=== PATIENT | female | born 1980 | race African-American/Black ===

== ENCOUNTER 2018-11-07 22:06 | Emergency (ER) | payer BC, OTHER ==
[2018-11-07 22:30] VITALS: BP 169/90; PULSE 81; TEMP 98.3; BMI 49.8
[2018-11-08] MEDS ORDERED: ACETAMINOPHEN 325 MG TABLET (FP) PO ONE (00:49)
[2018-11-08] MEDS ORDERED: ACETAMINOPHEN 325 MG TABLET (FP) ONE (00:52)
--- NOTE | 2018-11-08 00:52 | PDOC ---
History of Present Illness - General Chief Complaint: Sore Throat Stated Complaint: COLD SYMPTOMS Time Seen by Provider: 11/08/18 00:44 History Source: Patient Exam Limitations: No Limitations Past History - Past Medical History Allergies/Adverse Reactions: Allergies Allergy/AdvReac Type Severity Reaction Status Date / Time No Known Allergies Allergy Verified 07/09/12 09:16 Home Medications: Ambulatory Orders NK [No Known Home Medication] 11/08/18 - Suicide/Smoking/Psychosocial Hx Smoking Status: No Smoking History: Never smoked Number of Cigarettes Smoked Daily: 0 *Physical Exam - Vital Signs Last Vital Signs Temp Pulse Resp BP Pulse Ox 98.3 F 81 19 169/90 99 11/07/18 22:28 11/07/18 22:28 11/07/18 22:28 11/07/18 22:28 11/07/18 22:28 *DC/Admit/Observation/Transfer Diagnosis at time of Disposition: Sore throat - Discharge Dispostion Disposition: HOME Decision to Admit order: No - Referrals Referrals: Sary Rivera MD [Primary Care Provider] - [facility] [place] [facility] [place] [Provider Group] - Patient Instructions Printed Discharge Instructions: DI for Strep Throat Additional Instructions: you were seen for your sore throat. your strep test was negative. please use motrin and tylenol for pain management and as directed on the label. please return to the emergency department if you have worsening pain or new concerning symptoms such as neck stiffness, fever, confusion, shortness of breath, and instability when walking. please follow up with your PMD within 1 week for follow up care and management. - Post Discharge Activity Forms/Work/School Notes: Back to Work
--- NOTE | 2018-11-08 01:19 | PDOC ---
Documentation entered by Kathy Peterson SCRIBE, acting as scribe for Chacorta Russ MD. Chacorta Russ MD: This documentation has been prepared by the Nicholas pepe Nirvannie, SCRIBE, under my direction and personally reviewed by me in its entirety. I confirm that the documentation accurately reflects all work, treatment, procedures, and medical decision making performed by me. Attending Attestation - Resident Resident Name: Jayesh Lawrence - ED Attending Attestation I have performed the following: I have examined & evaluated the patient, The case was reviewed & discussed with the resident, I agree w/resident's findings & plan - HPI HPI: 11/08/18 00:53 The patient is a 38 year old female, with a significant past medical history of DM, HTN, prolactinoma, who presents to the emergency department with, sore throat. She denies any worsening or alleviating factors. Allergies: NKDA Primary Care Physician: Dr. Sary Rivera - Physicial Exam PE: 11/08/18 01:18 Patient is awake and alert, well-appearing, afebrile Normocephalic and atraumatic PERRLA, EOMI, no photophobia TMs are normal bilaterally Oropharynx is clear No cervical lymphadenopathy appreciated; no meningismus Lungs are clear RRR No petechial rash Abdomen is nontender, nondistended Nonfocal neurologically - Medical Decision Making 11/08/18 01:19 38-year-old female with history of diabetes presents with signs and symptoms consistent with upper respiratory infection. I do not suspect pneumonia or meningitis at this time. Will obtain rapid strep test and if negative, will discharge with symptomatic relief with PMD follow-up.
== END 2018-11-08 02:44 | disposition home or self-care (01) ==
LOC: JER 22:06
DX: J02.9 Acute pharyngitis, unspecified (principal); E11.9 Type 2 diabetes mellitus without complications; I10 Essential (primary) hypertension; D35.2 Benign neoplasm of pituitary gland
CPT/HCPCS: 87070; 87880; 99281-25

== ENCOUNTER 2020-01-11 18:31 | Emergency (ER) | payer OTHER ==
[2020-01-11 18:41] VITALS: TEMP 98; BMI 47.2
[2020-01-11] MEDS ORDERED: SODIUM CHLORIDE 1,000 ML IV STA (18:42)
--- NOTE | 2020-01-11 18:42 | PDOC ---
Rapid Medical Evaluation Time Seen by Provider: 01/11/20 18:35 Medical Evaluation: Allergies Allergy/AdvReac Type Severity Reaction Status Date / Time No Known Allergies Allergy Verified 07/09/12 09:16 01/11/20 18:36 CC: sob x 1 day, lightheaded and feels sinus pressure and sore throat x months, covid-(last week), endoscopy last week and has mild upper abd pain, niddm (no meds taken today) Plan: labs, bgm, ekg, ivf, cxr, d dimer Exam: vss, appears dyspneic Discharge Disposition - Diagnosis Shortness of breath - Referrals - Patient Instructions - Post Discharge Activity
[2020-01-11] MEDS ORDERED: LABETALOL HCL 100 MG TABLET (FP) PO ONE (19:58)
[2020-01-11] MEDS ORDERED: LABETALOL HCL 100 MG TABLET (FP) ONE (20:26)
[2020-01-11 20:29] LABS: BASO % 1.5 % (0-2.0); EOS % 5.4 % (0-4.5); HEMATOCRIT 35.2 % (32.4-45.2); HEMOGLOBIN 11.7 GM/dL (10.7-15.3); LYMPH % 43.8 % (8-40); MCH 28.1 pg (25.7-33.7); MCHC 33.3 g/dl (32.0-36.0); MEAN CELL VOLUME 84.6 fl (80-96); MEAN PLT VOLUME 8.4 fl (7.5-11.1); MONO % 5.8 % (3.8-10.2); NEUT % 43.5 % (42.8-82.8); PLATELET COUNT 345 K/MM3 (134-434); RBC 4.17 M/mm3 (3.60-5.2); RDW 14.7 % (11.6-15.6); WHITE BLOOD COUNT 5.8 K/mm3 (4.0-10.0)
--- NOTE | 2020-01-11 20:39 | PDOC ---
*Physical Exam - Vital Signs Last Vital Signs Temp Pulse Resp BP Pulse Ox 98.0 F 79 20 179/96 H 100 01/11/20 18:36 01/11/20 18:36 01/11/20 18:36 01/11/20 18:36 01/11/20 18:36 ED Treatment Course - LABORATORY CBC & Chemistry Diagram: 01/11/20 20:15 01/11/20 20:15 - ADDITIONAL ORDERS Additional order review: 01/11/20 20:15 RBC 4.17 MCV 84.6 MCHC 33.3 RDW 14.7 MPV 8.4 Neutrophils % 43.5 Lymphocytes % 43.8 H Monocytes % 5.8 Eosinophils % 5.4 H Basophils % 1.5 - Medications Given in the ED: ED Medications Discontinued Medications Generic Name Dose Route Start Last Admin Trade Name Freq PRN Reason Stop Dose Admin Sodium Chloride 1,000 mls @ 1,000 mls/hr 01/11/20 18:42 01/11/20 20:37 Normal Saline - IV 01/11/20 19:41 1,000 mls/hr ASDIR STA Administration Labetalol HCl 300 mg 01/11/20 19:58 01/11/20 20:37 Normodyne - PO 01/11/20 19:59 300 mg ONCE ONE Administration Medical Decision Making - Medical Decision Making 01/11/20 20:39 Patient seen by the advanced practice provider under my supervision. Ancillary testing reviewed as necessary. I agree with plan as outlined by the advanced practice provider. Discharge - Discharge Information Problems reviewed: Yes Clinical Impression/Diagnosis: Shortness of breath, Chest tightness, Chest pain at rest Condition: Stable Disposition: HOME - Follow up/Referral Referrals: Colby Torrez MD [Staff Physician] - Call tomorrow Enrique Benson MD [Staff Physician] - Call tomorrow Sary Rivera MD [Primary Care Provider] - - Patient Discharge Instructions Patient Printed Discharge Instructions: DI for Atypical Chest Pain Additional Instructions: Please follow-up with a emergency medicine as soon as possible. Return to the emergency room for any worsening symptoms - Post Discharge Activity Work/Back to School Note: Back to Work
[2020-01-11 20:57] LABS: EPI CELLS 16 /uL (0-25.1); HYALINE CASTS 11 /uL (0-3.1); PH,URINE 5.5 (5.0-8.0); URINE APPEARANCE CLEAR; URINE BACTERIA 395 /uL (0-1359); URINE BILIRUBIN NEGATIVE (NEGATIVE); URINE COLOR YELLOW; URINE GLUCOSE (UA) NEGATIVE (NEGATIVE); URINE KETONE NEGATIVE (NEGATIVE); URINE LEUK ESTERASE NEGATIVE (NEGATIVE); URINE NITRITE NEGATIVE (NEGATIVE); URINE PROTEIN 1+ (NEGATIVE); URINE UROBILINOGEN 0.2 mg/dL (0.2-1.0); URINE WBC 4 /uL (0-25.8)
[2020-01-11 20:58] LABS: HCG,QUALITATIVE URINE Negative
[2020-01-11 21:41] LABS: ALBUMIN 3.9 g/dl (3.4-5.0); ALK PHOS 55 U/L (45-117); ANION GAP 9 MMOL/L (8-16); BILIRUBIN,TOTAL 0.4 mg/dL (0.2-1); BLOOD UREA NITROGEN 6.8 mg/dL (7-18); CALCIUM 9.1 mg/dL (8.5-10.1); CHLORIDE 109 mmol/L (98-107); CO2 25 mmol/L (21-32); CREATININE 0.9 mg/dL (0.55-1.3); GLUCOSE,RANDOM 82 mg/dL (74-106); SGOT/AST 39 U/L (15-37); SGPT/ALT 77 U/L (13-61); SODIUM 143 mmol/L (136-145); TOT PROT 7.5 g/dl (6.4-8.2)
[2020-01-11 21:55] VITALS: BP 134/75; PULSE 71
--- NOTE | 2020-01-11 22:07 | PDOC ---
History of Present Illness - General Chief Complaint: Shortness of Breath Stated Complaint: SOB/LIGHT HEADED Time Seen by Provider: 01/11/20 18:35 - History of Present Illness Initial Comments: 01/11/20 22:04 39-year-old female with a past medical history of diabetes and hypertension presents for evaluation of shortness of breath and malaise which started today. She has no chest pain. She has not taken her daily blood pressure medication as of now Past History - Medical History Allergies/Adverse Reactions: Allergies Allergy/AdvReac Type Severity Reaction Status Date / Time No Known Allergies Allergy Verified 07/09/12 09:16 Home Medications: Ambulatory Orders Albuterol Sulfate Inhaler - [Ventolin Hfa Inhaler -] 2 inh PO Q4H PRN 12/18/19 Amlodipine Besylate 5 mg PO DAILY 12/18/19 Aspirin [Aspirin EC] 325 mg PO DAILY 12/18/19 Famotidine [Pepcid -] 40 mg PO HS 12/18/19 Labetalol HCl 300 mg PO BID 12/18/19 Metformin HCl 12/18/19 Omeprazole 20 mg PO AM 12/18/19 Telmisartan 20 mg PO DAILY 12/18/19 Asthma: No (SEASONAL ALLERGIES) COPD: No Diabetes: Yes (PRE) GI Disorders: Yes (HIATAL HERNIA/GERD) HTN: Yes - Immunization History Immunization Up to Date: Yes - Psycho-Social/Smoking History Smoking Status: No Smoking History: Never smoked Have you smoked in the past 12 months: No Number of Cigarettes Smoked Daily: 0 - Substance Abuse Hx (Audit-C & DAST Scrn) How often the patient has a drink containing alcohol: Never Score: In Men: 4 or > Positive; In Women: 3 or > Positive: 0 Screen Result (Pos requires Nsg. Audit-10AR): Negative In the last yr the pt used illegal drug/Rx for NonMed reason: No Score: Yes response is considered Positive: 0 Screen Result (Positive result requires Nsg. DAST-10): Negative Review of Systems - Review of Systems Constitutional: No: Fever Respiratory: Yes: SOB at Rest. No: Cough, Wheezing Cardiac (ROS): No: Chest Pain *Physical Exam - Vital Signs Last Vital Signs Temp Pulse Resp BP Pulse Ox 98.0 F 71 20 134/75 100 01/11/20 18:36 01/11/20 21:54 01/11/20 18:36 01/11/20 21:54 01/11/20 21:54 - Physical Exam 01/11/20 22:05 GENERAL: The patient is awake, alert, and fully oriented, in no acute distress. HEAD: Normal with no signs of trauma. EYES: sclera anicteric, conjunctiva clear. ENT: Ears normal tympanic membranes normal oropharynx clear uvula midline NECK: Normal range of motion LUNGS: Breath sounds equal, clear to auscultation bilaterally. No wheezes, and no crackles. HEART: S1 and S2 without murmur, rub or gallop. ABDOMEN: Soft, nontender, normoactive bowel sounds. No guarding, no rebound. No masses. EXTREMITIES: Normal range of motion, no edema. No clubbing or cyanosis. No cords, erythema, or tenderness. NEUROLOGICAL: Cranial nerves II through XII grossly intact. PSYCH: Normal mood, normal affect. SKIN: Warm, Dry, normal turgor, no rashes or lesions noted. ED Treatment Course - LABORATORY CBC & Chemistry Diagram: 01/11/20 20:15 01/11/20 20:15 - ADDITIONAL ORDERS Additional order review: Laboratory Results 01/11/20 01/11/20 01/11/20 20:45 20:15 20:15 D-Dimer 366 Sodium 143 Potassium 4.0 Chloride 109 H Carbon Dioxide 25 Anion Gap 9 BUN 6.8 L Creatinine 0.9 Est GFR (CKD-EPI)AfAm 93.35 Est GFR (CKD-EPI)NonAf 80.54 Random Glucose 82 Calcium 9.1 Total Bilirubin 0.4 AST 39 H ALT 77 H Alkaline Phosphatase 55 Troponin I < 0.02 Total Protein 7.5 Albumin 3.9 Urine Color Yellow Urine Appearance Clear Urine pH 5.5 Ur Specific [place] 1.007 L Urine Protein 1+ H Urine Glucose (UA) Negative Urine Ketones Negative Urine Blood 3+ H Urine Nitrite Negative Urine Bilirubin Negative Urine Urobilinogen 0.2 Ur Leukocyte Esterase Negative Urine WBC (Auto) 4 Urine Casts (Auto) 11 U Epithel Cells (Auto) 16 Urine Bacteria (Auto) 395 Urine HCG, Qual Negative 01/11/20 20:15 RBC 4.17 MCV 84.6 MCHC 33.3 RDW 14.7 MPV 8.4 Neutrophils % 43.5 Lymphocytes % 43.8 H Monocytes % 5.8 Eosinophils % 5.4 H Basophils % 1.5 - RADIOLOGY Radiology Studies Ordered: Category Date Time Status CHEST PA & LAT [RAD] Stat Radiology 01/11/20 20:17 Taken - Medications Given in the ED: ED Medications Discontinued Medications Generic Name Dose Route Start Last Admin Trade Name Freq PRN Reason Stop Dose Admin Sodium Chloride 1,000 mls @ 1,000 mls/hr 01/11/20 18:42 01/11/20 20:37 Normal Saline - IV 01/11/20 19:41 1,000 mls/hr ASDIR STA Administration Labetalol HCl 300 mg 01/11/20 19:58 01/11/20 20:37 Normodyne - PO 01/11/20 19:59 300 mg ONCE ONE Administration Medical Decision Making - Medical Decision Making 01/11/20 22:06 PERC 0 less than 2% chance of PE Will repeat EKG and troponin BP come down nicely 01/11/20 22:38 Awaiting second troponin and follow-up EKG patient to be signed out to main emergency room at this time Discharge - Discharge Information Problems reviewed: Yes Clinical Impression/Diagnosis: Shortness of breath - Follow up/Referral Referrals: Sary Rivera MD [Primary Care Provider] - - Patient Discharge Instructions - Post Discharge Activity
[2020-01-11 22:34] LABS: URINE RBC 114.5 /uL (0-23.9); YEAST NEGATIVE (NEGATIVE)
--- NOTE | 2020-01-11 22:58 | PDOC ---
*Physical Exam - Vital Signs Last Vital Signs Temp Pulse Resp BP Pulse Ox 98.0 F 71 20 134/75 100 01/11/20 18:36 01/11/20 21:54 01/11/20 18:36 01/11/20 21:54 01/11/20 21:54 ED Treatment Course - LABORATORY CBC & Chemistry Diagram: 01/11/20 20:15 01/11/20 20:15 - ADDITIONAL ORDERS Additional order review: Laboratory Results 01/11/20 01/11/20 01/11/20 20:45 20:15 20:15 D-Dimer 366 Sodium 143 Potassium 4.0 Chloride 109 H Carbon Dioxide 25 Anion Gap 9 BUN 6.8 L Creatinine 0.9 Est GFR (CKD-EPI)AfAm 93.35 Est GFR (CKD-EPI)NonAf 80.54 Random Glucose 82 Calcium 9.1 Total Bilirubin 0.4 AST 39 H ALT 77 H Alkaline Phosphatase 55 Troponin I < 0.02 Total Protein 7.5 Albumin 3.9 Urine Color Yellow Urine Appearance Clear Urine pH 5.5 Ur Specific [place] 1.007 L Urine Protein 1+ H Urine Glucose (UA) Negative Urine Ketones Negative Urine Blood 3+ H Urine Nitrite Negative Urine Bilirubin Negative Urine Urobilinogen 0.2 Ur Leukocyte Esterase Negative Urine WBC (Auto) 4 Urine RBC (Auto) 114.5 Urine Casts (Auto) 11 U Pathogenic Cast Auto Negative U Epithel Cells (Auto) 16 Urine Bacteria (Auto) 395 Urine Yeast (Auto) Negative Urine HCG, Qual Negative 01/11/20 20:15 RBC 4.17 MCV 84.6 MCHC 33.3 RDW 14.7 MPV 8.4 Neutrophils % 43.5 Lymphocytes % 43.8 H Monocytes % 5.8 Eosinophils % 5.4 H Basophils % 1.5 - Medications Given in the ED: ED Medications Discontinued Medications Generic Name Dose Route Start Last Admin Trade Name Freq PRN Reason Stop Dose Admin Sodium Chloride 1,000 mls @ 1,000 mls/hr 01/11/20 18:42 01/11/20 20:37 Normal Saline - IV 01/11/20 19:41 1,000 mls/hr ASDIR STA Administration Labetalol HCl 300 mg 01/11/20 19:58 01/11/20 20:37 Normodyne - PO 01/11/20 19:59 300 mg ONCE ONE Administration Medical Decision Making - Medical Decision Making 2 nd ekg unchanged. troponin negative. advised to follow up with cardiology. referrals were given. Discharge - Discharge Information Problems reviewed: Yes Clinical Impression/Diagnosis: Shortness of breath, Chest tightness, Chest pain at rest Condition: Stable Disposition: HOME - Follow up/Referral Referrals: Sary Rivera MD [Primary Care Provider] - Colby Torrez MD [Staff Physician] - Call tomorrow Enrique Benson MD [Staff Physician] - Call tomorrow - Patient Discharge Instructions Patient Printed Discharge Instructions: DI for Atypical Chest Pain Additional Instructions: Please follow-up with a clinical appeals rn as soon as possible. Return to the emergency room for any worsening symptoms - Post Discharge Activity Work/Back to School Note: Back to Work
--- NOTE | 2020-01-12 10:12 | EKG ---
Test Reason : Blood Pressure : / mmHG Vent. Rate : 068 BPM Atrial Rate : 068 BPM P-R Int : 136 ms QRS Dur : 088 ms QT Int : 428 ms P-R-T Axes : 055 018 012 degrees QTc Int : 455 ms NORMAL SINUS RHYTHM POSSIBLE ANTERIOR INFARCT (CITED ON OR BEFORE 11-JAN-2020) ABNORMAL ECG WHEN COMPARED WITH ECG OF 11-JAN-2020 20:01, NO SIGNIFICANT CHANGE WAS FOUND Confirmed by Cornelio Reynoso MD ([id number]) on 01/12/2020 10:11:48 AM Referred By: Confirmed By:Cornelio Reynoso MD
--- NOTE | 2020-01-12 10:13 | EKG ---
Test Reason : Blood Pressure : / mmHG Vent. Rate : 073 BPM Atrial Rate : 073 BPM P-R Int : 136 ms QRS Dur : 088 ms QT Int : 396 ms P-R-T Axes : 041 007 004 degrees QTc Int : 436 ms NORMAL SINUS RHYTHM POSSIBLE ANTERIOR INFARCT , AGE UNDETERMINED ABNORMAL ECG Confirmed by Cornelio Reynoso MD ([id number]) on 01/12/2020 10:12:40 AM Referred By: Confirmed By:Cornelio Reynoso MD
== END 2020-01-12 00:50 | disposition home or self-care (01) ==
LOC: JER 18:31
PROC: 3E0337Z Introduction of Electrolytic and Water Balance Substance into Peripheral Vein, Percutaneous Approach (ICD-10-PCS; principal; 2020-01-11)
DX: R06.02 Shortness of breath (principal); R07.9 Chest pain, unspecified
CPT/HCPCS: 36415; 71046-TC-FY; 80053; 81003; 84484; 84703; 85025; 85379; 93005; 93010; 99285-25

== ENCOUNTER 2020-03-30 19:56 | Emergency (ER) | payer OTHER ==
[2020-03-30] MEDS ORDERED: ACETAMINOPHEN 1000 MG/100 ML VIAL (NON FORMULARY) IVPB ONE ×2 (20:05→20:40)
[2020-03-30] MEDS ORDERED: SODIUM CHLORIDE 1,000 ML IV STA (20:05)
--- NOTE | 2020-03-30 20:05 | PDOC ---
Rapid Medical Evaluation Time Seen by Provider: 03/30/20 20:01 Medical Evaluation: Allergies Allergy/AdvReac Type Severity Reaction Status Date / Time No Known Allergies Allergy Verified 07/09/12 09:16 03/30/20 20:02 CC: headache x 3 days, no hx of migraine, but has hx of sinus issues, went to pmd and gave her prednisone for nasal swelling, hx pit adenoma, has not had mri in a few years, no visual changes, hx htn but takes meds regularly Exam: elevated BP, otherwise normal PE Plan: labs, head ct, iv tylenol Discharge Disposition - Diagnosis Headache - Referrals Referrals: Sary Rivera MD [Primary Care Provider] - - Patient Instructions - Post Discharge Activity
[2020-03-30 20:09] VITALS: TEMP 97; BMI 47.2
--- OUTSIDE RECORDS SUMMARY | 2020-03-30 20:19 | XMS ---
:1980 Author Organization [facility] Care Team Providers Name Role Phone Cornelio Barrett Unavailable Unavailable ED STAFF PHYSICIAN, STAFF Unavailable Unavailable ED STAFF PHYSICIAN Unavailable Unavailable ED STAFF PHYSICIAN Unavailable Unavailable Re-disclosure Warning The records that you are about to access may contain information from federally- assisted alcohol or drug abuse programs. If such information is present, then the following federally mandated warning applies: This information has been disclosed to you from records protected by federal confidentiality rules (42 CFR part 2). The federal rules prohibit you from making any further disclosure of this information unless further disclosure is expressly permitted by the written consent of the person to whom it pertains or as otherwise permitted by 42 CFR part 2. A general authorization for the release of medical or other information is NOT sufficient for this purpose. The Federal rules restrict any use of the information to criminally investigate or prosecute any alcohol or drug abuse patient.The records that you are about to access may contain highly sensitive health information, the redisclosure of which is protected by Article 27-F of the [facility] Public Health law. If you continue you may haveaccess to information: Regarding HIV / AIDS; Provided by facilities licensed or operated by the [facility] Office of Mental Health; or Provided by the [facility] Office for People With Developmental Disabilities. If such information is present, then the following [facility] mandated warning applies: This information has been disclosed to you from confidential records which are protected by state law. State law prohibits you from making any further disclosure of this information without the specific written consent of the person to whom it pertains, or as otherwise permitted by law. Any unauthorized further disclosure in violation of state law may result in a fine or half-way sentence or both. A general authorization for the release of medical or other information is NOT sufficient authorization for further disclosure. 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 Emergency Attender: ED STAFF H 10/24/2019 08:34:00 PM [facility] PHYSICIANAttender: ED STAFF EDT - 10/25/2019 [facility] PHYSICIANAttender: STAFF ED 07:33:00 AM EDT STAFF PHYSICIANAdmitter: ED STAFF PHYSICIAN Patient discharged. Medications Medication Brand Start Product Dose Route [facility] Indications Reaction Description Data Name Date Form Instructions Instructions Source(s) Labetalol Labeta TABLET 300 ORAL active Whit e hydrochlori lol mg [place] de 100 MG Hcl Hospital Oral Tablet Labetalol Hcl 24 HR Metfor TABLET, 500 ORAL active White Metformin min EXTENDED mg [place] hydrochlori Hcl RELEASE Hospi abhijeet de 500 MG Extended Release Oral Tablet [Fortamet] Metformin Hcl Insurance Providers Payer name Policy type Policy ID Covered Covered democrat's Policy P kian / Coverage democrat ID relationship to [place] Inf ormation type rosales AETNA PPO [id number] SP [id number] 3 AETNA HMO [id number] PT [id number] 3 AETNA HMO [id number] PT [id number] [place] [id number] HEALTH PLAN POS AETNA USHC O [id number] 01 [id number] O O 01 Problems, Conditions, and Diagnoses Code Display Name Description Problem Type Effective Dates Data Source(s) Z53.20 Procedure and PROC/TRTMT NOT CRD Diagnosis 10/24/2019 [facility] treatment not OUT BEC PT 08:34:00 PM EDT [facility] carried out DECISION FOR UNSP because of REASONS patient's decision for unspecified reasons R07.9 Chest pain, CHEST PAIN, Diagnosis 10/24/2019 [facility] unspecified UNSPECIFIED 08:34:00 PM EDT Medical Center I16.0 Hypertensive HYPERTENSIVE Diagnosis 10/24/2019 [facility] urgency URGENCY 08:34:00 PM EDT Medical C enter R06.02 Shortness of SHORTNESS OF Diagnosis 10/24/2019 [facility] breath BREATH 08:34:00 PM EDT Medical C enter Results ID Date Data Source [id number] 01/04/2020 03:00:00 PM EDT [facility] Di[employer] Clock [employer] Watch Hands:EMILY SANCHEZ Name Value Range Interpretation Description Data Sup porting Code Source(s) Document(s ) Glucose 93 mg/dL [place] [Mass/volume] [facility] in Capillary blood by Glucometer ID Date Data Source [id number] 01/04/2020 02:42:00 PM EDT [facility] Name Value Range Interpretation Description Data Sup porting Code Source(s) Document(s ) Choriogonadotropin NEGATIVE [place] ( test) [place] [Presence] in Urine [facility] ID Date Data Source [id number] 12/15/2019 01:39:00 PM EDT [facility] Name Value Range Interpretation Code Description Data Rosa Isela rce(s) Supporting Document(s ) COV2 [facility] This lab was ordered by REMY palacios nd reported by [facility]. ID Date Data Source [id number] 11/03/2019 12:00:00 AM EDT [facility] Name Value Range Interpretation Code Description Data Rosa Isela rce(s) Supporting Document(s ) 2019-nCoV [facility] RNA XXX LIZABETH+probe- Imp This lab was ordered by [facility] and reported by [employer] ID Date Data Source HematologyRou.[id number] 10/24/2019 11:30:00 PM EDT [facility] 0400 Name Value Range Interpretation Description Data Sup porting Code Source(s) Document(s ) Erythrocytes 4.0-5.1 <content [facility] [#/volume] in styleCode="Bold Amadou Blood by ">Red Blood Medical Automated count Cell Count Center </content>4.22 MCUMM<content styleCode="Ital ics"> (4.0-5.1 MCUMM)</content > Hemoglobin 12.3-16. Below low normal <content [facility] [Mass/volume] in 0 styleCode="Bold Amadou Blood ">Hemoglobin Medical </content>11.7 Center G/DL L<content styleCode="Ital ics"> (12.3-16.0 G/DL)</content> Leukocytes 4.4-11.0 <content [facility] [#/volume] in styleCode="Bold Amadou Blood by ">White Blood Medical Automated count Cell Count Center </content>6.31 KCUMM<content styleCode="Ital ics"> (4.4-11.0 KCUMM)</content > Hematocrit 36.0-46. Below low normal <content [facility] [Volume 0 styleCode="Bold Amadou Fraction] of ">Hematocrit Medical Blood by </content>35.9 Center Automated count % L<content styleCode="Ital ics"> (36.0-46.0 %)</content> Erythrocyte mean 80.0-100 <content [facility] corpuscular .0 styleCode="Bold Amadou volume [Entitic ">Mean Medical volume] by Corpuscular Center Automated count Volume </content>85.1 FL<content styleCode="Ital ics"> (80.0-100.0 FL)</content> Erythrocyte mean 26.0-34. <content [facility] corpuscular 0 styleCode="Bold Amadou hemoglobin ">Mean Medical [Entitic mass] Corposcular Center by Automated Hemoglobin count </content>27.7 PG<content styleCode="Ital ics"> (26.0-34.0 PG)</content> Erythrocyte mean 32.0-37. <content [facility] corpuscular 0 styleCode="Bold Amadou hemoglobin ">Mean Corpus. Medical concentration Hgb Center [Mass/volume] by Concentration Automated count (MCHC) </content>32.6 G/DL<content styleCode="Ital ics"> (32.0-37.0 G/DL)</content> Erythrocyte 11.5-14. <content [facility] distribution 5 styleCode="Bold Amadou width [Ratio] by ">Red Cell Medical Automated count Distribution Center Width </content>13.2 %<content styleCode="Ital ics"> (11.5-14.5 %)</content> UNK 0 <content [facility] styleCode="Bold Amadou ">Nucleated Red Medical Blood Cell Center </content>0.0 /100<content styleCode="Ital ics"> (0 /100)</content> UNK 0.0 <content Saint styleCode="Bold Amadou ">Nucleated Red Medical Blood Cell Center Count </content>0.00 KCUMM<content styleCode="Ital ics"> (0.0 KCUMM)</content > Platelets 130-400 Above high <content [facility] [#/volume] in normal styleCode="Bold Amadou Blood by ">Platelet Medical Automated count Count Center </content>405 KCUMM H<content styleCode="Ital ics"> (130-400 KCUMM)</content > Platelet mean 8.0-11.0 <content [facility] volume [Entitic styleCode="Bold Amadou volume] in Blood ">Mean Platelet Medical by Automated Volume Center count </content>10.3 FL<content styleCode="Ital ics"> (8.0-11.0 FL)</content> ID Date Data Source GFR(Creatinine).[id number] 10/24/2019 11:30:00 PM EDT [facility] 0-0400 Name Value Range Interpretation Code Description Data Rosa Isela rce(s) Supporting Document(s ) UNK > 60 <content [facility] styleCode="Bold"> Medical Cent er EGFR </content>85 GFR<content styleCode="Italic s"> (> 60 GFR)</content> ID Date Data Source Coagulation 10/24/2019 11:30:00 PM [facility] ical Center Rout.[id number] EDT Name Value Range Interpretation Description Data Sup porting Code Source(s) Document(s ) INR in 0.80-1.2 <content [facility] Platelet poor 0 styleCode="Bold" Amadou plasma by >INR Medical Coagulation </content>1.13 Center assay #<content styleCode="Itali cs"> (0.80-1.20 #)</content> UNK 9.0-13.0 <content Saint styleCode="Bold" Amadou >Protime Medical </content>12.5 Center SEC<content styleCode="Itali cs"> (9.0-13.0 SEC)</content> aPTT in 25.1-36. <content [facility] Platelet poor 5 styleCode="Bold" [facility] plasma by >Partial Medical Coagulation Thromboplastin Center assay Time </content>30.8 SEC<content styleCode="Itali cs"> (25.1-36.5 SEC)</content> ID Date Data Source [id number] 10/24/2019 11:30:00 PM EDT [facility] Name Value Range Interpretation Description Data Sup porting Code Source(s) Document(s ) Natriuretic < 125 <content [facility] peptide.B styleCode="Alva [facility] prohormone d">NT Pro BNP Medical N-Terminal </content>29.6 Center [Mass/volume] PG/ML<content in Serum or styleCode="Althea Plasma lics"> (< 125 PG/ML)</conten t> ID Date Data Source CardiacMarkers.[id number] 10/24/2019 11:30:00 PM EDT [facility] -0400 Name Value Range Interpretation Description Data Sup porting Code Source(s) Document(s ) Troponin < 0.034 <content [facility] I.cardiac styleCode="Bold Amadou [Mass/volume ">Troponin I Medical ] in Serum </content>< Center or Plasma 0.012 NG/ML<content styleCode="Ital ics"> (< 0.034 NG/ML)</content > ID Date Data Source [id number] 10/24/2019 11:30:00 PM EDT [facility] Name Value Range Interpretation Description Data Sup porting Code Source(s) Document(s ) Potassium 3.5-5.3 <content [facility] [Moles/volume] styleCode="Alva Amadou in Serum or d">Potassium Medical Plasma </content>4.1 Center MEQ/L<content styleCode="Althea lics"> (3.5-5.3 MEQ/L)</conten t> Chloride 98-107 <content [facility] [Moles/volume] styleCode="Alva Amdaou in Serum or d">Chloride Medical Plasma </content>105 Center MEQ/L<content styleCode="Althea lics"> (98-107 MEQ/L)</conten t> Carbon 22-30 <content Saint dioxide, total styleCode="Alva Amadou [Moles/volume] d">Carbon Medical in Serum or Dioxide Center Plasma </content>26 MEQ/L<content styleCode="Althea lics"> (22-30 MEQ/L)</conten t> Sodium 137-145 <content [facility] [Moles/volume] styleCode="Alva Amadou in Serum or d">Sodium Medical Plasma </content>139 Center MEQ/L<content styleCode="Althea lics"> (137-145 MEQ/L)</conten t> Glucose 74-106 <content [facility] [Mass/volume] styleCode="Alva Amadou in Serum or d">Glucose Medical Plasma </content>97 Center MG/DL<content styleCode="Althea lics"> (74-106 MG/DL)</conten t> UNK 7-17 <content Saint styleCode="Alva Amadou d">BUN Medical </content>8 Center MG/DL<content styleCode="Althea lics"> (7-17 MG/DL)</conten t> Calcium 8.4-10.2 <content [facility] [Mass/volume] styleCode="Alva Amadou in Serum or d">Calcium Medical Plasma </content>9.9 Center MG/DL<content styleCode="Althea lics"> (8.4-10.2 MG/DL)</conten t> Creatinine 0.5-1.3 <content [facility] [Mass/volume] styleCode="Alva Tobar in Serum or d">Creatinine Medical Plasma </content>0.8 Center MG/DL<content styleCode="Althea lics"> (0.5-1.3 MG/DL)</conten t> UNK > 60 <content [facility] styleCode="Alva Amadou d">EGFR Medical </content>85 Center GFR<content styleCode="Althea lics"> (> 60 GFR)</content> Procedure Social History Code Duration Value Status Description Data Source(s ) Smoking Unknown if ever completed Unknown if ever [facility] smoked smoked Hospital Smoking Unknown if ever completed Unknown if ever [facility] smoked smoked Medical Center Vital Signs ID Date Data Source UNK Name Value Range Interpretation Code Description Data Source(s) Diastolic blood 79 mm[Hg] 79 mm[Hg] [facility] pressure Hospital Systolic blood 166 mm[Hg] 166 mm[Hg] [facility] Hospital Respiratory rate 14 /min 14 /min [facility] Heart rate 69 /min 69 /min [facility] Body temperature 37.33313 Miesha 37.83887 Miesha [facility] Body temperature 98.8 [degF] 98.8 [degF] [facility] Body mass index 47.2 kg/m2 47.2 kg/m2 [facility] (BMI) [Ratio] Hospital Body weight 320 [lb_av] 320 [lb_av] [facility] Oxygen saturation 99 % 99 % [facility] in Arterial blood Medical Center by Pulse oximetry Heart rate 81 /min 81 /min [facility] Heart rate 81 /min 81 /min [facility] Diastolic blood 92 mm[Hg] 92 mm[Hg] [facility] pressure Medical Center Systolic blood 158 mm[Hg] 158 mm[Hg] [facility] pressure Medical Center Body weight 149.290335 149.671935 kg [facility] Measured kg Medical Center Body temperature 36.553069 36.674876 Miesha [facility] Respiratory rate 18 /min 18 /min [facility] Oxygen saturation 96 % 96 % [facility] Arterial blood Medical Center by Pulse oximetry Heart rate 95 /min 95 /min [facility] Body height 175.655717 175.665461 cm [facility] cm Medical Center Diastolic blood 125 mm[Hg] 125 mm[Hg] [facility] pressure Medical Center Systolic blood 197 mm[Hg] 197 mm[Hg] [facility] pressure Medical Center Body mass index 48.7 kg/m2 48.7 kg/m2 [facility] (BMI) [Ratio] Medical Jet ter
[2020-03-30] MEDS ORDERED: METOCLOPRAMIDE HCL INJECTION 10 MG/2 ML VIAL IVPUSH ONE (20:40)
[2020-03-30] MEDS ORDERED: ACETAMINOPHEN 500 MG TABLET (FP) PO ONE (20:56)
[2020-03-30] MEDS ORDERED: ACETAMINOPHEN 325 MG TABLET (FP) ONE (21:06)
[2020-03-30] MEDS ORDERED: METOCLOPRAMIDE HCL INJECTION 10 MG/2 ML VIAL ONE (21:06)
--- NOTE | 2020-03-30 21:21 | PDOC ---
History of Present Illness - General Chief Complaint: Headache Stated Complaint: HEADACHE Time Seen by Provider: 03/30/20 20:01 - History of Present Illness Initial Comments: 39 YOF h/o pituitary adenoma, htn, prediabetes presents with headache of 2 days duration. Pain in top of head with radiation from neck, 02/21, took tylenol pm with no relief. Patient reports she has had sinus congestion for past month. Took many different antibiotics with little relief. Presented to urgent care yesterday complaining of current sx, was given prednisone and unknown abx. Did not improve sx. Denies CP, SOB, N/V/D, fever, chills, recent sick contacts, vision changes, changes in urinary habits. Constitutional: No Weight Change, No Fever, No Chills, No Night Sweats, No Fatigue, No Malaise ENT/Mouth: No Hearing Changes, No Ear Pain, No Nasal Congestion, No Sinus Pain, No Hoarseness, No sore throat, No Rhinorrhea, No Swallowing Difficulty Eyes: No Eye Pain, No Swelling, No Redness, No Foreign Body, No Discharge, No Vision Changes Cardiovascular: No Chest Pain, No SOB, No PND, No Dyspnea on Exertion, No Orthopnea, No Claudication, No Edema, No Palpitations Respiratory: No Cough, No Sputum, No Wheezing, No Smoke Exposure, No Dyspnea Gastrointestinal: No Nausea, No Vomiting, No Diarrhea, No Constipation, No Pain, No Heartburn, No Anorexia, No Dysphagia, No Hematochezia, No Melena, No Flatulence, No Jaundice Genitourinary: No Dysmenorrhea, No DUB, No Dyspareunia, No Dysuria, No Urinary Frequency, No Hematuria, No Urinary Incontinence, No Urgency, No Flank Pain, No Urinary Flow Changes, No Hesitancy Musculoskeletal: No Arthralgias, No Myalgias, No Joint Swelling, No Joint Stiffness, No Back Pain, No Neck Pain, No Injury History Skin: No Skin Lesions, No Pruritis, No Hair Changes, No Breast/Skin Changes, No Nipple Discharge Neuro: No Weakness, No Numbness, No Paresthesias, No Loss of Consciousness, No Syncope, No Dizziness, + Headache, No Coordination Changes, No Recent Falls Psych: No Anxiety/Panic, No Depression, No Insomnia, No Personality Changes, No Delusions, No Rumination, No SI/HI/AH/VH, No Social Issues, No Memory Changes, No Violence/Abuse Hx., No Eating Concerns Heme/Lymph: No Bruising, No Bleeding, No Transfusions History, No Lymphadenopathy Endocrine: No Polyuria, No Polydipsia, No Temperature Intolerance Past History - Medical History Allergies/Adverse Reactions: Allergies Allergy/AdvReac Type Severity Reaction Status Date / Time No Known Allergies Allergy Verified 07/09/12 09:16 Home Medications: Ambulatory Orders Albuterol Sulfate Inhaler - [Ventolin Hfa Inhaler -] 2 inh PO Q4H PRN 12/18/19 Amlodipine Besylate 5 mg PO DAILY 12/18/19 Aspirin [Aspirin EC] 325 mg PO DAILY 12/18/19 Famotidine [Pepcid -] 40 mg PO HS 12/18/19 Labetalol HCl 300 mg PO BID 12/18/19 Metformin HCl 12/18/19 Omeprazole 20 mg PO AM 12/18/19 Telmisartan 20 mg PO DAILY 12/18/19 Asthma: No (SEASONAL ALLERGIES) COPD: No Diabetes: Yes (PRE) GI Disorders: Yes (HIATAL HERNIA/GERD) HTN: Yes Other medical history: Pituitary Adenoma - Reproductive History Is Patient Now?: No - Immunization History Immunization Up to Date: Yes - Psycho-Social/Smoking History Smoking Status: No Smoking History: Never smoked Have you smoked in the past 12 months: No Number of Cigarettes Smoked Daily: 0 - Substance Abuse Hx (Audit-C & DAST Scrn) How often the patient has a drink containing alcohol: Never Score: In Men: 4 or > Positive; In Women: 3 or > Positive: 0 Screen Result (Pos requires Nsg. Audit-10AR): Negative *Physical Exam - Vital Signs Last Vital Signs Temp Pulse Resp BP Pulse Ox 97 F L 85 20 191/108 H 100 03/30/20 20:03 03/30/20 20:03 03/30/20 20:03 03/30/20 20:03 03/30/20 20:03 - Physical Exam General Appearance: Yes: Nourished, Appropriately Dressed, Obese HEENT: positive: EOMI, ANABEL, Normal ENT Inspection, Normal Voice, Symmetrical Neck: positive: Trachea midline, Normal Thyroid Respiratory/Chest: positive: Lungs Clear, Normal Breath Sounds Cardiovascular: positive: Regular Rhythm, Regular Rate, S1, S2 Musculoskeletal: positive: Normal Inspection Extremity: positive: Normal Capillary Refill, Normal Inspection Integumentary: positive: Normal Color, Dry, Warm Neurologic: positive: fire claims adjuster II-XII NML intact, Fully Oriented, Alert, Normal Mood/Affect, Normal Response, Motor Strength 11/16 ED Treatment Course - Medications Given in the ED: ED Medications Discontinued Medications Generic Name Dose Route Start Last Admin Trade Name Wilda PRN Reason Stop Dose Admin Acetaminophen 1,000 mg 03/30/20 20:05 03/30/20 20:18 Ofirmev Injection - IVPB 03/30/20 20:06 Not Given ONCE ONE Acetaminophen 975 mg 03/30/20 20:56 03/30/20 21:14 Tylenol - PO 03/30/20 20:57 975 mg ONCE ONE Administration Sodium Chloride 1,000 mls @ 1,000 mls/hr 03/30/20 20:05 03/30/20 20:18 Normal Saline - IV 03/30/20 21:04 Not Given ASDIR STA Metoclopramide HCl 10 mg 03/30/20 20:40 03/30/20 21:14 Reglan Injection - IVPUSH 03/30/20 20:41 10 mg ONCE ONE Administration Medical Decision Making - Medical Decision Making 39 YOF h/o htn, pituitary adenoma with 8/10 headache for 2 days - vitals unremarkable - neuro exam unremarkable - tylenol and regelen - will reassess 03/30/20 21:26 03/30/20 21:43 - Patient reports symptoms have improved - will dc patient to follow up with pcp Discharge - Discharge Information Problems reviewed: Yes Clinical Impression/Diagnosis: Headache - Admission No - Follow up/Referral Referrals: Sary Rivera MD [Primary Care Provider] - - Patient Discharge Instructions Patient Printed Discharge Instructions: Tension Headache, Sinus Headache Additional Instructions: You were seen in the ER for a headache. You received a physical exam, vitals and encounter with a physician who determined that you were medically stable. You were given medication for your symptoms which improved after receiving the medication. You were considered safe to return home. Please return if you experience any of the following: worsening headache, weakness, decreased sensation, blurry vision, decreased urinary output, blood in urine, dizziness, nausea, vomiting, fever, or chills. Please follow up with your primary care doctor regarding your visit to the emergency department. - Post Discharge Activity
[2020-03-30 21:52] VITALS: BP 153/95; PULSE 74
--- NOTE | 2020-03-30 22:11 | PDOC ---
Documentation entered by Kristen Neumann SCRIBE, acting as scribe for Jeri Mendiola MD. Jeri Mendiola MD: This documentation has been prepared by the radhaibeThien Ana, SCRIBE, under my direction and personally reviewed by me in its entirety. I confirm that the documentation accurately reflects all work, treatment, procedures, and medical decision making performed by me. Attending Attestation - Resident Resident Name: Mahendra Reese - ED Attending Attestation I have performed the following: I have examined & evaluated the patient, The case was reviewed & discussed with the resident, I agree w/resident's findings & plan, Exceptions are as noted - HPI HPI: 03/30/20 21:01 Patient is a 39 year old female with a significant past medical history of prediabetes, hypertension, and pituitary adenoma, who presents to the ED with a headache x3 days. Patient stated her pain starts at the top of her head and radiated down to her neck with a pain level of 8/10. Patient also reports sinus congestion x1 month. Patient disclosed she attempted to self medicate but experienced [id number] relief. Patient denies: fever, chills, any vision changes, nausea, vomiting, SOB, chest pain, diarrhea, any urinary issues, recent sick contacts, or any other related symptoms Allergies: NKDA - Physicial Exam PE: 03/30/20 22:08 General: well appearing HEENT: NCAT, EOMI, no nystagmus Neuro: Aox3, speech fluent, face symmetric, gait steady, finger to nose intact and symmetric b/l, negative rhomberg, no drift, no focal deficits - Medical Decision Making 03/30/20 22:09 39 yo F p/w gradual onset headache in the setting of sinus/nasal congestion, no red flags concerning for ICH, no changes in vision and hx more consistent with tension/sinus type headache as compared to pseudotumor. Plan: -reglan -tylenol -reassess, if pain improves will d/c with return precautions, recommend ENT f/u This clinical encounter is taking place during a federal and state health care emergency attributable to the novel [place] Virus pandemic. The [employer] of the Department of Health and Human Services has declared, pursuant to the Public Health Service Act 319F-3 (42 U.S[place]C. 247d-6d), that a covered persons activities related to medical countermeasures against COVID-19 will be immune from liability under Federal and State law. Discharge - Discharge Information Problems reviewed: Yes Clinical Impression/Diagnosis: Headache Disposition: HOME - Follow up/Referral Referrals: Sary Rivera MD [Primary Care Provider] - - Patient Discharge Instructions Patient Printed Discharge Instructions: Tension Headache, Sinus Headache Additional Instructions: You were seen in the ER for a headache. You received a physical exam, vitals and encounter with a physician who determined that you were medically stable. You were given medication for your symptoms which improved after receiving the medi cation. You were considered safe to return home. Please return if you experience any of the following: worsening headache, weakness, decreased sensation, blurry vision, decreased urinary output, blood in urine, dizziness, nausea, vomiting, fever, or chills. Please follow up with your primary care doctor regarding your visit to the emergency department. - Post Discharge Activity
== END 2020-03-30 21:58 | disposition home or self-care (01) ==
LOC: JER 19:56
PROC: 3E033NZ Introduction of Analgesics, Hypnotics, Sedatives into Peripheral Vein, Percutaneous Approach (ICD-10-PCS; principal; 2020-03-30)
PROC: 3E033GC Introduction of Other Therapeutic Substance into Peripheral Vein, Percutaneous Approach (ICD-10-PCS; 2020-03-30)
PROC: 3E0337Z Introduction of Electrolytic and Water Balance Substance into Peripheral Vein, Percutaneous Approach (ICD-10-PCS; 2020-03-30)
DX: R51 Headache (principal)
CPT/HCPCS: 99285-25

== ENCOUNTER 2022-09-07 07:14 | Day surgery (SDC) | payer OTHER ==
[2022-09-04 12:53] VITALS: BMI 48.2
[2022-09-07] MEDS ORDERED: BUPIVACAINE HCL/PF 2.5 MG/ML - 30 ML VIAL IJ ONE (08:30)
[2022-09-07] MEDS ORDERED: PROPOFOL 20 ML ONE ×2 (08:39→08:40)
[2022-09-07] MEDS ORDERED: MIDAZOLAM HCL 2 MG/2 ML SINGLE DOSE VIAL ONE (08:39)
[2022-09-07] MEDS ORDERED: ONDANSETRON 4 MG/2 ML VIAL IVPUSH PRN (09:52)
[2022-09-07] MEDS ORDERED: PROMETHAZINE HCL 25 MG/1 ML VIAL IVPB PRN (09:52)
[2022-09-07] MEDS ORDERED: LACTATED RINGERS SOLUTION 1,000 ML IV SCH (10:00)
[2022-09-07] MEDS ORDERED: FENTANYL CITRATE/PF 50 MCG/ML VIAL ONE ×2 (10:11→10:19)
[2022-09-07] MEDS ORDERED: ONDANSETRON 4 MG/2 ML VIAL ONE (10:11)
[2022-09-07] MEDS ORDERED: oxyCODONE HCL 5 MG TABLET PO PRN (10:11)
[2022-09-07] MEDS ORDERED: oxyCODONE HCL 5 MG TABLET ONE (10:43)
[2022-09-07 12:02] VITALS: RESP 16; TEMP 98.1
[2022-09-07 12:09] VITALS: BP 143/90; PULSE 74
== END 2022-09-07 11:50 | disposition home or self-care (01) ==
LOC: FASU 07:14
PROVIDERS: ATTEND Orthopaedic Surgery
PROC: 0SBC4ZZ Excision of Right Knee Joint, Percutaneous Endoscopic Approach (ICD-10-PCS; 2022-09-07)
PROC: 0SBC4ZZ Excision of Right Knee Joint, Percutaneous Endoscopic Approach (ICD-10-PCS; principal; 2022-09-07 09:15)
DX: S83.241A Other tear of medial meniscus, current injury, right knee, initial encounter (principal); S83.281A Other tear of lateral meniscus, current injury, right knee, initial encounter; S83.8X1A Sprain of other specified parts of right knee, initial encounter; M65.861 Other synovitis and tenosynovitis, right lower leg; X58.XXXA Exposure to other specified factors, initial encounter; Y93.9 Activity, unspecified; Y92.9 Unspecified place or not applicable
CPT/HCPCS: 81025; 94760

== ENCOUNTER 2022-11-23 00:08 | Emergency (ER) | payer SELFPAY ==
[2022-11-23 00:21] VITALS: BP 155/94; PULSE 78; RESP 18; TEMP 98.5; BMI 46.3
[2022-11-23] MEDS ORDERED: ACETAMINOPHEN 1000 MG/100 ML BAG IVPB ONE (01:10)
[2022-11-23] MEDS ORDERED: METOCLOPRAMIDE HCL INJECTION 10 MG/2 ML VIAL IVPUSH ONE (01:10)
[2022-11-23] MEDS ORDERED: SODIUM CHLORIDE 0.9% 500 ML INFUS.BAG IV ONE (01:10)
[2022-11-23] MEDS ORDERED: METOCLOPRAMIDE HCL INJECTION 10 MG/2 ML VIAL ONE (01:26)
[2022-11-23] MEDS ORDERED: ACETAMINOPHEN INJECTION 100 ML IVPB ONE (01:26)
[2022-11-23 02:13] LABS: BASO % 1.2 % (0-2.0); EOS % 5.6 % (0-4.5); HEMATOCRIT 33.3 % (32.4-45.2); HEMOGLOBIN 11.8 GM/dL (10.7-15.3); LYMPH % 39.9 % (8-40); MCH 28.1 pg (25.7-33.7); MCHC 35.4 g/dl (32.0-36.0); MEAN CELL VOLUME 79.5 fl (80-96); MEAN PLT VOLUME 8.1 fl (7.5-11.1); NEUT % 48.3 % (42.8-82.8); PLATELET COUNT 364 10^3/uL (134-434); RBC 4.19 M/mm3 (3.60-5.2); RDW 14.5 % (11.6-15.6); WHITE BLOOD COUNT 6.1 K/mm3 (4.0-10.0)
[2022-11-23 02:42] LABS: POTASSIUM 4.4 mmol/L (3.5-5.1)
[2022-11-23 02:44] LABS: ALBUMIN 3.9 g/dl (3.4-5.0); CALCIUM 9.2 mg/dL (8.5-10.1)
[2022-11-23 02:45] LABS: BLOOD UREA NITROGEN 9.3 mg/dL (7-18)
[2022-11-23 02:49] LABS: BILIRUBIN,TOTAL 0.4 mg/dL (0.2-1); TOT PROT 7.5 g/dl (6.4-8.2)
== END 2022-11-23 03:58 | disposition home or self-care (01) ==
LOC: JER 00:08
PROC: 3E033NZ Introduction of Analgesics, Hypnotics, Sedatives into Peripheral Vein, Percutaneous Approach (ICD-10-PCS; principal; 2022-11-23)
PROC: 3E033GC Introduction of Other Therapeutic Substance into Peripheral Vein, Percutaneous Approach (ICD-10-PCS; 2022-11-23)
DX: R51.9 Headache, unspecified (principal); R42 Dizziness and giddiness; H53.8 Other visual disturbances; G43.909 Migraine, unspecified, not intractable, without status migrainosus
CPT/HCPCS: 36415; 80053; 84484; 84703; 85025; 93005; 93010; 99284-25